=== PATIENT | female | born 1980 | race Caucasian/White ===

== ENCOUNTER → 2020-06-25 09:11 | Outpatient (BNVA) | payer OTHER, SELFPAY | PROVIDERS: PCP Family Medicine; Visit Provider Student in an Organized Health Care Education/Training Program | DX: Z76.89 Persons encountering health services in other specified circumstances (principal) ==

== ENCOUNTER → 2020-07-15 10:25 | Outpatient (BNVA) | payer OTHER, SELFPAY | PROVIDERS: PCP Family Medicine; Visit Provider Anesthesiology | DX: M47.816 Spondylosis without myelopathy or radiculopathy, lumbar region (principal); M46.1 Sacroiliitis, not elsewhere classified; M79.7 Fibromyalgia; E05.90 Thyrotoxicosis, unspecified without thyrotoxic crisis or storm; N83.209 Unspecified ovarian cyst, unspecified side | CPT/HCPCS: 99202 ==

== ENCOUNTER 2020-07-15 12:30 | Outpatient (REF) | payer OTHER, SELFPAY ==
[2020-07-15 14:56] LABS: Free T4 (Free Thyroxine) 1.04 ng/dL (0.71-1.85); Thyroid Stimulating Hormone 1.64 uIU/mL (0.32-4.0)
[2020-07-16 06:28] LABS: CA-125 6 U/mL (<35)
[2020-07-16 06:48] LABS: Triiodothyronine T3 Free 3.3 pg/mL (2.3-4.2)
== END 2020-07-15 12:31 | disposition home or self-care (01) ==
LOC: HO.10HDL 12:30
PROVIDERS: Visit Provider Anesthesiology
DX: N83.209 Unspecified ovarian cyst, unspecified side (principal); E05.90 Thyrotoxicosis, unspecified without thyrotoxic crisis or storm
CPT/HCPCS: 36415; 84439; 84443; 84481; 86304

== ENCOUNTER 2020-08-27 08:34 | Outpatient (REF) | payer OTHER, SELFPAY | END 2020-08-27 08:35 | disposition home or self-care (01) | LOC: HO.LAB 08:34 | PROVIDERS: Visit Provider Internal Medicine | DX: Z20.822 Contact with and (suspected) exposure to COVID-19 (principal) | CPT/HCPCS: 36415; C9803; U0003; U0005 ==

== ENCOUNTER 2020-08-27 08:46 | Outpatient (REF) | payer OTHER, SELFPAY ==
[2020-08-27 10:17] LABS: MANUAL DIFF FLAG NO
[2020-08-27 10:26] LABS: Basophils Percent Auto 0.5 % (0-2); Eosinophils Absolute Auto 0.1 X10*3/uL (0.0-0.4); Eosinophils Percent Auto 1.4 % (0-4); Hematocrit 39.1 % (37-47); Imm Gran Abs Auto 0.01 X10*3/uL (0.00-0.03); Imm Gran Pct Auto 0.2 % (0.0-0.4); Lymphocytes Absolute Auto 1.5 X10*3/uL (1.2-4.9); Lymphocytes Percent Auto 34.2 % (20-40); Mean Corpuscular HGB Conc 33.2 g/dl (31.0-35.0); Mean Corpuscular Hemoglobin 30.2 pg (27.0-33.0); Mean Corpuscular Volume 90.7 fL (80-98); Mean Platelet Volume 11.6 fL (9.4-12.3); Monocytes Absolute Auto 0.3 X10*3/uL (0.1-1.2); Neutrophils Absolute Auto 2.5 X10*3/uL (2.0-8.3); Neutrophils Percent Auto 56.7 % (45-73); Platelet Count 175 X10*3/uL (160-400); Red Blood Count 4.31 X10*6/uL (4.20-5.50); Red Cell Distribution Width 12.7 % (11.0-16.0); White Blood Count 4.4 X10*3/uL (4.8-10.8)
[2020-08-27 11:12] LABS: Alanine Aminotransferase 8 U/L (0-31); Albumin Level 4.4 g/dL (3.5-5.0); Alkaline Phosphatase 43 U/L (39-117); Anion Gap 12 (12-20); Aspartate Amino Transferase 12 U/L (5-31); Bilirubin Total 0.9 mg/dL (0.0-1.0); Blood Urea Nitrogen 22 mg/dL (9-16); Carbon Dioxide 28 mmol/L (22-29); Chloride 106 mmol/L (96-108); Estimated Glomerular Filt Rate > 60; Glucose Fasting 97 mg/dL (60-99); Potassium 3.6 mmol/L (3.3-5.1); Sodium 142 mmol/L (135-145); Total Protein 6.9 g/dL (6.5-8.0)
== END 2020-08-27 08:47 | disposition home or self-care (01) ==
LOC: HO.10HDL 08:46
PROVIDERS: Absent Provider Student in an Organized Health Care Education/Training Program; Visit Provider Family Medicine
DX: R63.4 Abnormal weight loss (principal)
CPT/HCPCS: 36415; 80053; 85025

== ENCOUNTER 2020-09-22 06:28 | Outpatient (REF) | payer OTHER, SELFPAY ==
--- NOTE | ~2020-09-22 | FL_ITS ---
EXAMINATION: XR FLUOROSCOPY WITH IMAGES CLINICAL INFORMATION: M46.1 - Sacroiliitis, not elsewhere classified COMPARISON: None. TECHNIQUE: Fluoroscopy performed by Gauri Garcia NP. Fluoroscopy time: 0.2 minutes DAP: 0.466 Gycm2 Images: 1 FINDINGS: There is a spinal needle overlying the lower right sacroiliac joint. FL/FL guidance in treatment room IMPRESSION: Fluoroscopy for pain management procedure.
== END 2020-09-22 06:29 | disposition home or self-care (01) ==
LOC: HO.RADIR 06:28
PROVIDERS: Visit Provider Anesthesiology
DX: M46.1 Sacroiliitis, not elsewhere classified (principal); M79.7 Fibromyalgia; Z79.899 Other long term (current) drug therapy
CPT/HCPCS: 27096; J3300; Q9967

== ENCOUNTER 2020-10-20 06:20 | Outpatient (REF) | payer OTHER, SELFPAY ==
--- NOTE | ~2020-10-20 | FL_ITS ---
EXAMINATION: XR FLUOROSCOPY WITH IMAGES CLINICAL INFORMATION: Spondylosis without myelopathy or radiculopathy. COMPARISON: None. TECHNIQUE: Fluoroscopy performed by Jose JASSO Fluoroscopy time: 0.6 minutes DAP: 2.46 Gycm2 Images: 6 FINDINGS: There are bilateral needles and contrast positioned lateral to the L3, L4 and L5 pedicles for ganglion blocks. No gross bony abnormality seen. FL/FL guidance in treatment room IMPRESSION: Fluoroscopy was provided to Gauri Garcia for spine procedure.
== END 2020-10-20 06:21 | disposition home or self-care (01) ==
LOC: HO.RADIR 06:20
PROVIDERS: Visit Provider Anesthesiology
DX: M47.816 Spondylosis without myelopathy or radiculopathy, lumbar region (principal); M46.1 Sacroiliitis, not elsewhere classified; M79.7 Fibromyalgia
CPT/HCPCS: 64493; 64494; Q9967

== ENCOUNTER → 2020-10-26 14:24 | Outpatient (BNVA) | payer OTHER, SELFPAY | PROVIDERS: PCP Family Medicine; Visit Provider Anesthesiology ==

== ENCOUNTER → 2020-12-09 09:11 | Outpatient (BNVA) | payer OTHER, SELFPAY | PROVIDERS: PCP Family Medicine; Visit Provider Anesthesiology | DX: M47.816 Spondylosis without myelopathy or radiculopathy, lumbar region (principal); M46.1 Sacroiliitis, not elsewhere classified; M53.3 Sacrococcygeal disorders, not elsewhere classified | CPT/HCPCS: 99212 ==

== ENCOUNTER 2020-12-23 09:50 | Outpatient (REF) | payer OTHER, SELFPAY ==
[2020-12-23 11:52] LABS: Hematocrit 41.7 % (37-47); Hemoglobin 13.8 g/dl (12.0-16.0); Mean Corpuscular HGB Conc 33.1 g/dl (31.0-35.0); Mean Corpuscular Hemoglobin 30.5 pg (27.0-33.0); Mean Corpuscular Volume 92.3 fL (80-98); Mean Platelet Volume 11.1 fL (9.4-12.3); Platelet Count 189 X10*3/uL (160-400); Red Blood Count 4.52 X10*6/uL (4.20-5.50); Red Cell Distribution Width 12.6 % (11.0-16.0); White Blood Count 6.2 X10*3/uL (4.8-10.8)
[2020-12-23 12:37] LABS: Thyroid Stimulating Hormone 0.82 uIU/mL (0.32-4.0)
[2020-12-24 05:33] LABS: CT PCR NOT DETECTED (Not Detect.); NG PCR NOT DETECTED (Not Detect.)
[2020-12-24 08:51] LABS: BV Int Neg Control Negative (Negative); BV Int Pos Control Positive (Positive)
[2020-12-26 06:47] LABS: HPV mRNA E6/E7 rflx Not Detected (Not Detected)
== END 2020-12-23 09:51 | disposition home or self-care (01) ==
LOC: HO.LAB 09:50
PROVIDERS: PCP Family Medicine; Visit Provider Advanced Practice Midwife
DX: Z01.411 Encounter for gynecological examination (general) (routine) with abnormal findings (principal); Z11.51 Encounter for screening for human papillomavirus (HPV); Z11.3 Encounter for screening for infections with a predominantly sexual mode of transmission; N92.1 Excessive and frequent menstruation with irregular cycle; N84.1 Polyp of cervix uteri; Z20.2 Contact with and (suspected) exposure to infections with a predominantly sexual mode of transmission
CPT/HCPCS: 36415; 84443; 85027; 87480; 87491; 87510; 87591; 87624; 87660; 88142

== ENCOUNTER 2021-01-13 11:15 | Outpatient (REF) | payer OTHER, SELFPAY ==
--- NOTE | ~2021-01-13 | US_ITS ---
EXAMINATION: PELVIC ULTRASOUND CLINICAL INFORMATION: Excessive and frequent menstruation COMPARISON: Previous CT of the abdomen and pelvis June 2014 TECHNIQUE: Transabdominal and transvaginal pelvic ultrasound was performed. Transvaginal exam was performed for better visualization of the uterus and ovaries. FINDINGS: The uterus is anteverted and measures 9 x 4.7 x 5 cm in dimension. No focal uterine lesion is seen. Endometrial thickness is normal measuring 0.5 cm. The ovaries are normal-appearing. The right ovary measures 4.3 x 2.3 x 2.2 cm and the left ovary measures 3.8 x 1.3 x 2.9 cm. There is no fluid in the pelvis. There are prominent pelvic vessels questionable for pelvic congestion, right greater than left. US/US pelvic and transvaginal IMPRESSION: Prominent pelvic vessels questionable for pelvic congestion, particularly on the right. Otherwise unremarkable exam.
== END 2021-01-13 11:16 | disposition home or self-care (01) ==
LOC: HO.US 11:15
PROVIDERS: Visit Provider Advanced Practice Midwife
DX: N92.0 Excessive and frequent menstruation with regular cycle (principal)
CPT/HCPCS: 76830; 76856

== ENCOUNTER 2021-01-28 09:48 | Outpatient (REF) | payer OTHER, SELFPAY | END 2021-01-28 09:49 | disposition home or self-care (01) | LOC: HO.LAB 09:48 | PROVIDERS: PCP Family Medicine; Visit Provider Advanced Practice Midwife | DX: N84.1 Polyp of cervix uteri (principal); N92.0 Excessive and frequent menstruation with regular cycle; Z79.899 Other long term (current) drug therapy; Z71.2 Person consulting for explanation of examination or test findings | CPT/HCPCS: 58100; 58558; 88305 ==

== ENCOUNTER → 2021-02-01 08:53 | Outpatient (BNVA) | payer OTHER, SELFPAY | PROVIDERS: PCP Family Medicine; Visit Provider Advanced Practice Midwife | DX: Z30.42 Encounter for surveillance of injectable contraceptive (principal) | CPT/HCPCS: 96372; 99211 ==

== ENCOUNTER → 2021-02-11 10:50 | Outpatient (BNVA) | payer OTHER, SELFPAY | PROVIDERS: PCP Family Medicine; Visit Provider Advanced Practice Midwife ==

== ENCOUNTER 2021-02-23 09:12 | Outpatient (REF) | payer OTHER, SELFPAY ==
--- NOTE | ~2021-02-23 | MM_ITS ---
EXAMINATION: MM SCREENING DIGITAL BREAST TOMOSYNTHESIS, BILATERAL CLINICAL INFORMATION: Screening. Asymptomatic. The lifetime risk of breast cancer based on the Tyrer-Cuzick Model is 7.6%. COMPARISON: Mammography: None TECHNIQUE: Digital breast tomosynthesis is performed in both the craniocaudal and mediolateral oblique views along with computer-aided detection (CAD). Synthesized 2D images are generated from the tomosynthesis. FINDINGS: The breasts are extremely dense, which lowers the sensitivity of mammography (ACR BI-RADS breast composition Category d). There are no significant masses, abnormal calcifications, or other abnormalities. MM/MM tomosynthesis screening BI IMPRESSION: No specific mammographic evidence to suggest malignancy. ASSESSMENT: BI-RADS 1: Negative RECOMMENDATION: Routine annual mammography screening. This patient's information was entered into a reminder system with a target due date for their next mammogram.
== END 2021-02-23 09:13 | disposition home or self-care (01) ==
LOC: HO.MAMMO 09:12
PROVIDERS: Visit Provider Advanced Practice Midwife
DX: Z12.31 Encounter for screening mammogram for malignant neoplasm of breast (principal)
CPT/HCPCS: 77063; 77067

== ENCOUNTER → 2021-03-01 11:03 | Outpatient (BNVA) | payer OTHER, SELFPAY | PROVIDERS: PCP Family Medicine; Visit Provider Advanced Practice Midwife ==

== ENCOUNTER 2021-03-09 06:33 | Outpatient (REF) | payer OTHER, SELFPAY ==
--- NOTE | ~2021-03-09 | FL_ITS ---
EXAMINATION: XR FLUOROSCOPY WITH IMAGES CLINICAL INFORMATION: Sacrococcygeal disorder. COMPARISON: None. TECHNIQUE: Fluoroscopy performed by Gauri Garcia NP Fluoroscopy time: 1.2 minutes DAP: 4.45 Gycm2 Images: 2 FINDINGS: There are bilateral needles positioned adjacent to L4, L5 and S1 pedicles. The visualized vertebral heights and alignment and disc heights are normal. FL/FL guidance in treatment room IMPRESSION: Fluoroscopy was provided to referring physician during pain management.
== END 2021-03-09 06:34 | disposition home or self-care (01) ==
LOC: HO.RADIR 06:33
PROVIDERS: Visit Provider Anesthesiology
DX: M47.816 Spondylosis without myelopathy or radiculopathy, lumbar region (principal); M46.1 Sacroiliitis, not elsewhere classified; M53.3 Sacrococcygeal disorders, not elsewhere classified
CPT/HCPCS: 64493; 64494; 64495; J3300

== ENCOUNTER → 2021-03-23 11:21 | Outpatient (BNVA) | payer OTHER, SELFPAY | PROVIDERS: PCP Family Medicine; Visit Provider Nurse Practitioner Family | DX: M79.7 Fibromyalgia (principal) | CPT/HCPCS: 99212 ==

== ENCOUNTER → 2021-04-14 09:20 | Outpatient (BNVA) | payer OTHER, SELFPAY | PROVIDERS: PCP Family Medicine; Visit Provider Nurse Practitioner Family | DX: M47.816 Spondylosis without myelopathy or radiculopathy, lumbar region (principal); M46.1 Sacroiliitis, not elsewhere classified; M53.3 Sacrococcygeal disorders, not elsewhere classified | CPT/HCPCS: 99212 ==

== ENCOUNTER → 2021-04-26 08:47 | Outpatient (BNVA) | payer OTHER, SELFPAY | PROVIDERS: PCP Family Medicine; Visit Provider Advanced Practice Midwife | DX: Z30.42 Encounter for surveillance of injectable contraceptive (principal) | CPT/HCPCS: 96372; 99211 ==

== ENCOUNTER → 2021-07-14 08:40 | Outpatient (BNVA) | payer OTHER, SELFPAY | PROVIDERS: PCP Family Medicine; Visit Provider Advanced Practice Midwife | DX: Z30.42 Encounter for surveillance of injectable contraceptive (principal) | CPT/HCPCS: 96372; 99211 ==

== ENCOUNTER → 2021-07-26 10:34 | Outpatient (BNVA) | payer OTHER, SELFPAY | PROVIDERS: Visit Provider Obstetrics & Gynecology ==

== ENCOUNTER 2021-08-30 09:31 | Outpatient (REF) | payer OTHER, SELFPAY ==
[2021-08-30 10:11] LABS: MANUAL DIFF FLAG NO
[2021-08-30 10:24] LABS: Basophils Percent Auto 0.4 % (0-2); Eosinophils Absolute Auto 0.1 X10*3/uL (0.0-0.4); Eosinophils Percent Auto 1.1 % (0-4); Hemoglobin 13.9 g/dl (12.0-16.0); Imm Gran Abs Auto 0.01 X10*3/uL (0.00-0.03); Imm Gran Pct Auto 0.2 % (0.0-0.4); Lymphocytes Absolute Auto 1.4 X10*3/uL (1.2-4.9); Lymphocytes Percent Auto 26.8 % (20-40); Mean Corpuscular HGB Conc 33.1 g/dl (31.0-35.0); Mean Corpuscular Hemoglobin 30.2 pg (27.0-33.0); Mean Corpuscular Volume 91.1 fL (80.0-98.0); Mean Platelet Volume 10.4 fL (9.4-12.3); Monocytes Absolute Auto 0.4 X10*3/uL (0.1-1.2); Monocytes Percent Auto 7.3 % (2-11); Neutrophils Absolute Auto 3.4 x10*3/uL (2.0-8.3); Neutrophils Percent Auto 64.2 % (45-73); Platelet Count 216 X10*3/uL (160-400); Red Blood Count 4.61 X10*6/uL (4.20-5.50); Red Cell Distribution Width 12.2 % (11.0-16.0); White Blood Count 5.3 X10*3/uL (4.8-10.8)
[2021-08-30 11:03] LABS: Erythrocyte Sedimentation Rate 2 MM/HR (0-20)
[2021-08-31 23:12] LABS: Follicle Stimulating Hormone 10.2 mIU/mL; Lutenizing Hormone 3.3 mIU/mL
== END 2021-08-30 09:32 | disposition home or self-care (01) ==
LOC: HO.LAB 09:31
PROVIDERS: PCP Family Medicine; Visit Provider Family Medicine
DX: R53.83 Other fatigue (principal); M79.10 Myalgia, unspecified site; R61 Generalized hyperhidrosis; M47.816 Spondylosis without myelopathy or radiculopathy, lumbar region; M46.1 Sacroiliitis, not elsewhere classified; M53.3 Sacrococcygeal disorders, not elsewhere classified
CPT/HCPCS: 36415; 83001; 83002; 85025; 85652; 99212

== ENCOUNTER → 2021-09-29 08:55 | Outpatient (BNVA) | payer OTHER, SELFPAY | PROVIDERS: PCP Family Medicine; Visit Provider Advanced Practice Midwife | DX: Z30.42 Encounter for surveillance of injectable contraceptive (principal) | CPT/HCPCS: 96372; 99211 ==

== ENCOUNTER → 2021-10-19 11:25 | Outpatient (BNVA) | payer OTHER, SELFPAY | PROVIDERS: PCP Family Medicine; Visit Provider Nurse Practitioner Family | DX: M79.7 Fibromyalgia (principal); R21 Rash and other nonspecific skin eruption | CPT/HCPCS: 99212 ==

== ENCOUNTER 2021-11-30 08:39 | Day surgery (SDC) | payer OTHER, SELFPAY ==
--- NOTE | ~2021-11-30 | FL_ITS ---
EXAMINATION: XR FLUOROSCOPY WITH IMAGES CLINICAL INFORMATION: RFA lumbar COMPARISON: March 09, 2021 TECHNIQUE: Fluoroscopy performed by Dr. Johnie Torres. Fluoroscopy time: 1.2 minutes DAP: 2.49 mGycm2 Images: 2 FINDINGS: [place] are seen in place bilaterally adjacent to the L4, L5, and S1 pedicles. No significant bony abnormalities appreciated. FL/FL guidance in OR IMPRESSION: Fluoroscopy for pain management procedure.
[2021-11-30 08:31] VITALS: BMI 21.4
[2021-11-30 08:55] VITALS: BP 103/69; PULSE 79; RESP 18; TEMP 36.6; O2SAT 99
--- NOTE | 2021-11-30 10:06 | MHC.SHP ---
Pre-Procedural Eval Section A Date of Service: 11/30/21 The patient is an INPATIENT: No Changes since office visit: Yes Patient answered all questions The History & Physical has been completed within 30 days and I have reviewed it.: No Section B Chief Complaint: Spondylosis without myelopathy or radiculopathy, l Details of Present Illness: as above Relevant Family History (Specify if Yes): No Relevant Social History: None Present Medications: see Short Stay Collaborative assessment Medical History: No relevant PMH History of Previous Operations: No relevant previous surgery Allergies: Allergies Allergy/AdvReac Type Severity Reaction Status Date / Time No Known Allergies Allergy Verified 10/19/21 11:45 [No Known Allergies*] Review of Systems Sugical H&P ROS: Negative: Constitution, Cardiovascular, Respiratory, Neurological, Psychiatric, Hem-Onc, Allergic/Immunologic, Gastrointestinal, Genitourinary, Musculoskeletal, Integumentary, Endocrine and Eyes/Ears/Nose/Throat Exam Surgical H&P Exam: Normal: HEENT, Normal: Heart, Normal: Lungs, Normal: Extremities, Normal: Abdomen, Normal: Skin and Normal: Neurological Plan Diagnosis/Plan: Unchanged I have reviewed the history and physical and performed a pertinent physical examination on my patient. No changes have occurred unless specified.
--- NOTE | 2021-11-30 10:07 | P.BOP_ITS ---
Brief Operative Note Date of Service: 11/30/21 Pre-op diagnosis: spondylosis lumbar spine Post-op diagnosis: same Procedure: RFA L3-L4- DRL5 B/l MB Implants: none Surgeon: Johnie Torres MD Anesthesia: local Was an Rivet Tapping Machine Operator used for this Procedure?: No Estimated blood loss (mL): 2 Pathology: none sent Condition: stable Disposition: PACU
--- NOTE | 2021-11-30 10:08 | W.PM.OPN ---
Operative Note Operative Note Date of Service: 11/30/21 Narrative: Informed consent was explained to the patient. All questions were explained and answered. The patient was taken inside the operating room where she was positioned prone on the operating table. [employer] monitors were applied. Patient was not sedated, she was able to answer the questions and respond to commands. Time-out was performed delineating correct site, side, the nature of the procedure, patient's allergy, preoperative antibiotic if needed. All operating room staff was participating in OR time-out procedure. The lower back was prepped with ChloraPrep and draped with sterile towels. Sterilely draped C-arm was brought over the operating field and sq picture of L4-and L5 vertebra and S1 AREA were delineated on the screen. Point of interest were delineated as connection of superior articular process of L4 and L5 vertebra bilaterally with corresponding transverse processes as well as connection of the sacral alae bilaterally with superior articular process of S1 1st on the right and then on the left side. . The projection of the point of interest to the skin were injected with the small amount of local anesthetic lidocaine 2% 1-1.5 cc. After that 18 gauge 100 mm RFA canulas? were driven to the point of interest in oblique fashion. After needles gently contacted the bone the sensory test was performed patient reported pressure tingling and burning sensation on sensory test.? After that motor tests were performed and no motor response was detected in the patients feet lower legs or thighs. After that? at the point of interests the cannulas? were injected with small amount of bupivacaine 0.5% mixed with lidocaine 1%-1cc? and also mixed with very small trace amount of Kenalog. 90 seconds after the injection the energy application was performed at 89 degrees Centigrade for 90 second. After first energy application the canullas were rotated 180 degress and energy application was repeated at the same setting. Upon completion of the injections? cannulas were removed and sterile dressings were applied, The? patient was taken outside of the operating room to recovery room where she recovered uneventfully.
[2021-11-30 11:15] VITALS: BP 117/71; PULSE 69; RESP 18; TEMP 36.8; O2SAT 100
== END 2021-11-30 11:30 | disposition home or self-care (01) ==
PROVIDERS: PCP Family Medicine; Visit Provider Anesthesiology
PROC: (CPT 64635; principal; 2021-11-30 09:30)
DX: M47.816 Spondylosis without myelopathy or radiculopathy, lumbar region (principal); M46.1 Sacroiliitis, not elsewhere classified; M53.3 Sacrococcygeal disorders, not elsewhere classified; M79.7 Fibromyalgia; F12.90 Cannabis use, unspecified, uncomplicated
CPT/HCPCS: 64635; 64636 ×2; J3300

== ENCOUNTER → 2021-12-22 10:47 | Outpatient (BNVA) | payer OTHER, SELFPAY | PROVIDERS: PCP Family Medicine; Visit Provider Advanced Practice Midwife | DX: Z30.42 Encounter for surveillance of injectable contraceptive (principal) | CPT/HCPCS: 96372; 99211 ==

== ENCOUNTER → 2022-01-03 10:42 | Outpatient (BNVA) | payer OTHER, SELFPAY | PROVIDERS: PCP Family Medicine; Visit Provider Anesthesiology | DX: M47.816 Spondylosis without myelopathy or radiculopathy, lumbar region (principal); M46.1 Sacroiliitis, not elsewhere classified; M53.3 Sacrococcygeal disorders, not elsewhere classified | CPT/HCPCS: 99212 ==

== ENCOUNTER → 2022-03-11 10:43 | Outpatient (BNVA) | payer OTHER, SELFPAY | PROVIDERS: Visit Provider Advanced Practice Midwife | DX: Z30.42 Encounter for surveillance of injectable contraceptive (principal) | CPT/HCPCS: 96372; 99211 ==

== ENCOUNTER → 2022-05-27 10:41 | Outpatient (BNVA) | payer OTHER, SELFPAY | PROVIDERS: Visit Provider Advanced Practice Midwife | DX: Z30.42 Encounter for surveillance of injectable contraceptive (principal) | CPT/HCPCS: 96372; 99211 ==

== ENCOUNTER → 2022-06-21 11:26 | Outpatient (BNVA) | payer OTHER, SELFPAY | PROVIDERS: PCP Family Medicine; Visit Provider Nurse Practitioner Family | DX: M79.7 Fibromyalgia (principal); R21 Rash and other nonspecific skin eruption | CPT/HCPCS: 99212 ==

== ENCOUNTER 2022-08-08 11:35 | Outpatient (REF) | payer OTHER, SELFPAY ==
[2022-08-08 13:36] LABS: MANUAL DIFF FLAG NO
[2022-08-08 13:41] LABS: Basophils Percent Auto 0.3 % (0-2); Eosinophils Absolute Auto 0.1 X10*3/uL (0.0-0.4); Eosinophils Percent Auto 1.6 % (0-4); Hematocrit 41.9 % (37.0-47.0); Hemoglobin 14.5 g/dl (12.0-16.0); Imm Gran Abs Auto 0.02 X10*3/uL (0.00-0.03); Imm Gran Pct Auto 0.3 % (0.0-0.4); Lymphocytes Absolute Auto 1.9 X10*3/uL (1.2-4.9); Lymphocytes Percent Auto 28.8 % (20-40); Mean Corpuscular HGB Conc 34.6 g/dl (31.0-35.0); Mean Corpuscular Hemoglobin 31.5 pg (27.0-33.0); Mean Corpuscular Volume 90.9 fL (80.0-98.0); Mean Platelet Volume 10.5 fL (9.4-12.3); Monocytes Absolute Auto 0.4 X10*3/uL (0.1-1.2); Monocytes Percent Auto 5.8 % (2-11); Neutrophils Absolute Auto 4.2 x10*3/uL (2.0-8.3); Neutrophils Percent Auto 63.2 % (45-73); Platelet Count 263 X10*3/uL (160-400); Red Blood Count 4.61 X10*6/uL (4.20-5.50); Red Cell Distribution Width 12.8 % (11.0-16.0); White Blood Count 6.7 X10*3/uL (4.8-10.8)
[2022-08-08 14:04] LABS: Anion Gap 10 (12-20); Blood Urea Nitrogen 22 mg/dL (9-16); C Reactive Protein 0.11 mg/dL (< or = 0.50); Calcium 9.4 mg/dL (8.4-10.2); Carbon Dioxide 26 mmol/L (22-29); Chloride 107 mmol/L (96-108); Estimated Glomerular Filt Rate > 60; Glucose Random 95 mg/dL (60-115); Potassium 4.3 mmol/L (3.3-5.1); Sodium 139 mmol/L (135-145)
[2022-08-08 14:16] LABS: TSH reflex Free T4 1.34 uIU/mL (0.32-4.0)
[2022-08-08 14:21] LABS: Erythrocyte Sedimentation Rate 7 MM/HR (0-20)
[2022-08-08 16:41] LABS: Alanine Aminotransferase 14 U/L (0-31); Albumin Level 4.3 g/dL (3.5-5.0); Alkaline Phosphatase 54 U/L (39-117); Aspartate Amino Transferase 14 U/L (5-31); Bilirubin Total 0.7 mg/dL (0.0-1.0); Total Protein 6.8 g/dL (6.5-8.0)
[2022-08-08 16:54] LABS: Free T4 (Free Thyroxine) 0.98 ng/dL (0.71-1.85)
== END 2022-08-08 11:36 | disposition home or self-care (01) ==
LOC: HO.10HDL 11:35
PROVIDERS: Absent Provider Family Medicine; Visit Provider Nurse Practitioner Family
DX: R25.1 Tremor, unspecified (principal); M79.7 Fibromyalgia
CPT/HCPCS: 36415; 80048; 80053; 83735; 84439; 84443; 85025; 85652; 86140

== ENCOUNTER 2022-08-18 12:19 | Outpatient (REF) | payer OTHER, SELFPAY ==
--- NOTE | ~2022-08-18 | MM_ITS ---
EXAMINATION: MM SCREENING DIGITAL BREAST TOMOSYNTHESIS, BILATERAL CLINICAL INFORMATION: Screening. Asymptomatic. The lifetime risk of breast cancer based on the Tyrer-Cuzick Model is 7%. COMPARISON: Mammography: 02/23/2021 (baseline). TECHNIQUE: Digital breast tomosynthesis is performed in both the craniocaudal and mediolateral oblique views along with computer-aided detection (CAD). Synthesized 2D images are generated from the tomosynthesis. Additional right CC view is provided. FINDINGS: The breasts are heterogeneously dense, which may obscure small masses (ACR BI-RADS breast composition Category c). Left breast shows no significant changes from baseline exam. Neither breast shows interval architectural abnormality or abnormal calcifications. The axilla and skin contours are unremarkable. Right CC view shows 5 mm asymmetric nodular density just lateral to midline, 5 cm from nipple not seen with certainty on prior exam, possibly previously obscured by overlapping fibroglandular tissue. This could represent a small cyst or intramammary node. Patient will be recalled for additional imaging. MM/MM tomosynthesis screening BI IMPRESSION: Right: -5 mm nodular asymmetric density just lateral to midline 5 cm from nipple. Left: -No mammographic evidence of malignancy. ASSESSMENT: BI-RADS 0: Incomplete - Need Additional Imaging Evaluation RECOMMENDATION: 1. Additional views of the right breast (spot CC, rolled CC x2) 2. Targeted ultrasound if warranted after review of the additional views. 3. Radiology department staff will contact the patient for additional imaging. This patient's information was entered into a reminder system with a target due date for their next mammogram.
== END 2022-08-18 12:20 | disposition home or self-care (01) ==
LOC: HO.MAMMO 12:19
PROVIDERS: PCP Family Medicine; Visit Provider Advanced Practice Midwife
DX: Z12.31 Encounter for screening mammogram for malignant neoplasm of breast (principal)
CPT/HCPCS: 77063; 77067

== ENCOUNTER → 2022-08-19 10:41 | Outpatient (BNVA) | payer OTHER, SELFPAY | PROVIDERS: PCP Family Medicine; Visit Provider Advanced Practice Midwife | DX: Z30.42 Encounter for surveillance of injectable contraceptive (principal) | CPT/HCPCS: 96372; 99211 ==

== ENCOUNTER 2022-09-13 14:17 | Outpatient (REF) | payer OTHER, SELFPAY ==
--- NOTE | ~2022-09-13 | MM_ITS ---
EXAMINATION: MM DIAGNOSTIC DIGITAL BREAST TOMOSYNTHESIS, RIGHT US DIAGNOSTIC ULTRASOUND BREAST, RIGHT CLINICAL INFORMATION: Recall from screening for 0.5 cm asymmetric nodular density mid right breast on CC view not seen with certainty on prior baseline exam, possibly obscured by overlapping fibroglandular tissue previously. TC score 7%. COMPARISON: Mammography: 08/18/2022, 02/23/2021 (baseline) TECHNIQUE: Digital breast tomosynthesis is performed. 2D images are generated from the tomosynthesis. The following views are obtained: Spot CC, rolled CC x2. Ultrasound right breast is targeted to the upper breast using grayscale imaging and color Doppler without and with harmonics. FINDINGS: The breasts are heterogeneously dense, which may obscure small masses (ACR BI-RADS breast composition Category c). The additional views confirm a smooth oval nodule central breast. Margins are smooth, partially obscured. No architectural abnormality. There is an incidental similar sized smooth nodule mid outer right breast which is stable from baseline exam. Ultrasound right breast demonstrates oval nodule mid 11:00 position, long axis parallel with the skin and overall size just under 6 mm. There are some fine internal septations. There is subtle increased through-transmission of sound. There is no associated peripheral or internal color flow. Results are discussed with the patient at time of visit. The nodule most likely represents a benign mildly complicated cyst. Finding will be reassessed again in 6 months with targeted ultrasound. MM/MM tomosynthesis added views R IMPRESSION: Probable benign mildly complicated cyst mid 11:00 right breast, approximately 6 mm. ASSESSMENT: BI-RADS 3: Probably Benign RECOMMENDATION: Targeted right breast ultrasound in 6 months. This patient's information was entered into a reminder system with a target due date for their next breast imaging.
== END 2022-09-13 14:18 | disposition home or self-care (01) ==
LOC: HO.MAMMO 14:17
PROVIDERS: PCP Family Medicine; Visit Provider Advanced Practice Midwife
DX: N64.89 Other specified disorders of breast (principal)
CPT/HCPCS: 76642; 77061; 77065

== ENCOUNTER → 2022-10-07 10:35 | Outpatient (BNVA) | payer OTHER, SELFPAY | PROVIDERS: PCP Family Medicine; Visit Provider Psychiatry & Neurology Neurology | DX: G25.2 Other specified forms of tremor (principal); G47.00 Insomnia, unspecified; G47.62 Sleep related leg cramps; G47.10 Hypersomnia, unspecified; F41.9 Anxiety disorder, unspecified | CPT/HCPCS: 99202 ==

== ENCOUNTER → 2022-11-24 15:42 | Outpatient (REF) | payer OTHER, SELFPAY | LOC: HO.SL 15:42 | PROVIDERS: PCP Family Medicine; Visit Provider Psychiatry & Neurology Neurology | DX: G47.00 Insomnia, unspecified (principal); G47.10 Hypersomnia, unspecified; G47.62 Sleep related leg cramps; R06.83 Snoring | CPT/HCPCS: 95806 ==

== ENCOUNTER → 2022-12-16 14:16 | Outpatient (BNVA) | payer OTHER, SELFPAY | PROVIDERS: PCP Family Medicine; Visit Provider Psychiatry & Neurology Neurology | DX: G25.2 Other specified forms of tremor (principal); G47.00 Insomnia, unspecified; G47.62 Sleep related leg cramps; G47.10 Hypersomnia, unspecified; F41.9 Anxiety disorder, unspecified | CPT/HCPCS: 99212 ==

== ENCOUNTER → 2022-12-30 20:56 | Outpatient (REF) | payer OTHER, SELFPAY | LOC: HO.SL 20:56 | PROVIDERS: PCP Family Medicine; Visit Provider Nurse Practitioner Family | DX: G47.62 Sleep related leg cramps (principal); G47.10 Hypersomnia, unspecified; G47.00 Insomnia, unspecified | CPT/HCPCS: 95810 ==

== ENCOUNTER → 2022-12-30 21:17 | Outpatient (BNV) | payer OTHER, SELFPAY | PROVIDERS: PCP Family Medicine; Visit Provider Psychiatry & Neurology Neurology | DX: R06.83 Snoring (principal) | CPT/HCPCS: 95810 ==

== ENCOUNTER 2025-01-23 10:26 | Outpatient (AMB) | payer OTHER, SELFPAY ==
--- NOTE | 2025-01-23 10:18 | MHC.PC.OV ---
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 Required: No Accompanied by: Self / Same As Patient Allergies No Known Allergies (No Known Allergies*) Allergy (Verified 01/23/25 10:18) Medication List - Last Reconciled 01/23/25 by Shaina Looney MD atomoxetine 60 mg PO QAM pregabalin 150 mg (2 x 75 mg) PO DAILY quetiapine ER 50 mg PO BEDTIME Tobacco use date assessed: 01/23/25 Dental Screening Dental Screen Date: 01/23/25 Did you have a dental visit in the last 12 months?: No Did you have a dental problem in the last 6 months where you did not have access to dental care?: No HPI HPI Comments History of Present Illness Details The patient is a 45 year old female with a past medical history of anxieyt, insomnia, IBS, presenting for follow up IBA-follows with [facility]: [facility]: [facility]. on atomoxetine, seroquel. Unsure of exact doses Frequent low back pain, joint pain. Increasingly bad over the past few years ROS CONSTITUTIONAL: Denies weight loss, fever and chills. HEENT: Denies changes in vision and hearing. RESPIRATORY: Denies SOB and cough. CV: Denies palpitations and CP GI: Denies abdominal pain, nausea, vomiting and diarrhea. : Denies dysuria and urinary frequency. MSK: Denies new myalgia and joint pain. SKIN: Denies rash and pruritus. NEUROLOGICAL: Denies headache PSYCHIATRIC: Denies recent changes in mood. PHYSICAL EXAM: GENERAL: Alert and oriented x 3. NAD EYES: EOMI. Anicteric. HENT: Moist mucous membranes. No scleral icterus. No cervical lymphadenopathy. LUNGS: Clear to auscultation bilaterally. CARDIOVASCULAR: Regular rate and rhythm. No murmur. No JVD. ABDOMEN: Soft, non-tender +bs EXTREMITIES: No edema. Non-tender. SKIN: No rashes or lesions. Warm. NEUROLOGIC: No focal neurological deficits. CN II-XII grossly intact PSYCHIATRIC: Cooperative. Appropriate mood and affect [facility] Medical History Anxiety Coarse tremors Hypersomnia Nocturnal leg cramps Insomnia Sacroiliac joint dysfunction of right side Weight loss Ovarian cyst Sacroiliitis Fibromyalgia Surgical History H/O knee surgery Hx of tubal ligation Family History Paternal Aunt History of breast cancer Mother No problems noted. Father No problems noted. Social History Housing: House Alcohol intake: never Patient Tobacco Use Status: Never used Tobacco e-Cigarette/Vaping Use: Never Used Substance Use Type: Marijuana service: No Current occupational status: unemployed Sexual orientation: Straight/Heterosexual Gender identity: Female Cognitive needs: No Hearing needs: No Vision needs: Yes (rx glasses) Questionnaire PHQ-9 Over the last 2 weeks, how often have you been bothered by any of the following problems? 1. Little interest or pleasure in doing things: not at all 2. Feeling down, depressed, or hopeless: nearly every day (anxiety) 3. Trouble falling or staying asleep, or sleeping too much: nearly every day 4. Feeling tired or having little energy: nearly every day 5. Poor appetite or overeating: nearly every day 6. Feeling bad about yourself - or that you are a failure or have let yourself or your family down: not at all 7. Trouble concentrating on things, such as reading the newspaper or watching television: not at all 8. Moving or speaking so slowly that other people could have noticed. Or the opposite - being so fidgety or restless that you have been moving around a lot more than usual: not at all 9. Thoughts that you would be better off or of hurting yourself in some way: not at all Total score: 12 Depression Screening Interpretation: Positive Depression Screening Follow-up: Existing condition Depression Screening Done: Yes 44407 - PHQ-9 Billing: Yes Source: Developed by Drs. Prateek Rea, Ana B.Julio Delacruz and colleagues, with an educational dipti from [employer]. Thrive Questionnaire Date Thrive assessed: 01/23/25 I am a: Patient Within the past 12 months, did the food you bought not last and you didn't have the money to get more?: Never true Within the past 12 months, did you worry whether your food would run out before you got money to buy more?: Never true Do you have trouble paying for medicines?: No Do you have trouble getting transportation to medical appointments?: No Do you have trouble paying your heating and electricity bill?: No Do you have trouble taking care of your child, family member or friend?: No Do you have trouble with day-to-day activities such as bathing, preparing meals, shopping, managing finances, etc.?: No Are you currently unemployed and looking for a job?: No Are you interested in more education?: No THRIVE Score: 0 AUDIT C Alcohol Use Questionnaire (AUDIT-C) 1. How often do you have a drink containing alcohol?: Never 3. How often do you have six or more drinks on one occasion?: Never Total Score: 0 EMILIANO-7 AMB Questionnaire EMILIANO-7 Date EMILIANO - 7 assessed: 01/23/25 Feeling nervous, anxious, or on edge: 3 = Nearly every day Not being able to stop or control worryin = Not at all Worrying too much about different things: 0 = Not at all Trouble relaxin = Not at all Being so restless that it is hard to sit still: 0 = Not at all Becoming easily annoyed or irritable: 0 = Not at all Feeling afraid as if something awful might happen: 0 = Not at all Total EMILIANO-7 score (0-4 normal; 5-9 mild; 10-14 moderate; 15-21 severe): 3 Source: Developed by Drs. Prateek Rea, Julio Melgar and colleagues, with an educational dipti from [employer]. Physical exam (Primary Care) Vital Signs: Last Vital Signs Temp 97.8 F 01/23/25 10:30 Pulse 88 01/23/25 10:30 BP 120/80 01/23/25 10:30 Pulse Ox 98 01/23/25 10:30 Oxygen Delivery Method Room Air 01/23/25 10:30 BMI result Body Mass Index 25.5 Tobacco/Smoking Status: Tobacco use Status Tobacco use date assessed 01/23/25 01/23/25 10:19 Patient Tobacco Use Status Never used Tobacco 01/23/25 10:19 e-Cigarette/Vaping Use Never Used 01/23/25 10:19 PHQ-9: PHQ-9 Score PHQ-9: Total score 12 01/27/25 13:57 Depression Screening Interpretation: Positive Depression Screening Follow-up: Existing condition Thrive Assessment: Date of Thrive Assessment Date Thrive assessed 01/23/25 01/23/25 10:19 Coding Level of Care Code New Pt Level 4 (91066) Complex EM visit Add On G2211 Diagnoses Anxiety F41.9 Irritable bowel syndrome, unspecified type K58.9 Irritable bowel syndrome type: unspecified Weight loss R63.4 Additional Codes PHQ-9 - 51270 - PHQ-9 Billing: Yes ([id number]) Assessment & Plan Assessment & Plan (1) Anxiety: Code(s): F41.9 - Anxiety disorder, unspecified Category: Medical (2) IBS (irritable bowel syndrome): Code(s): K58.9 - Irritable bowel syndrome, unspecified Category: Medical Qualifiers: Irritable bowel syndrome type: unspecified Qualified Code(s): K58.9 - Irritable bowel syndrome, unspecified (3) Weight loss: Code(s): R63.4 - Abnormal weight loss Category: Medical Plan 45 year old female to establish/follow up Polyarthraglia, increased low back pain -xray ordered. labs ordered.Referral orthopedics. Mammo ordered Orders: Orders Complete Blood Count Auto Diff 01/23/25 F41.9 - Anxiety disorder, unspecified, M54.9 - Dorsalgia, unspecified, R35.89 - Other polyuria, Z13.0 - Encounter for screening for diseases of the blood and blood-forming organs and certain disorders involving the immune mechanism, Z13.228 - Encounter for screening for other metabolic disorders Hemoglobin A1c 01/23/25 F41.9 - Anxiety disorder, unspecified, M54.9 - Dorsalgia, unspecified, R35.89 - Other polyuria, Z13.0 - Encounter for screening for diseases of the blood and blood-forming organs and certain disorders involving the immune mechanism, Z13.228 - Encounter for screening for other metabolic disorders Comprehensive Met. Panel 01/23/25 F41.9 - Anxiety disorder, unspecified, M54.9 - Dorsalgia, unspecified, R35.89 - Other polyuria, Z13.0 - Encounter for screening for diseases of the blood and blood-forming organs and certain disorders involving the immune mechanism, Z13.228 - Encounter for screening for other metabolic disorders Lipid Panel 01/23/25 F41.9 - Anxiety disorder, unspecified, M54.9 - Dorsalgia, unspecified, R35.89 - Other polyuria, Z13.0 - Encounter for screening for diseases of the blood and blood-forming organs and certain disorders involving the immune mechanism, Z13.228 - Encounter for screening for other metabolic disorders Lyme IgG/IgM w/reflex to WB 01/23/25 F41.9 - Anxiety disorder, unspecified, M54.9 - Dorsalgia, unspecified, R35.89 - Other polyuria, Z13.0 - Encounter for screening for diseases of the blood and blood-forming organs and certain disorders involving the immune mechanism, Z13.228 - Encounter for screening for other metabolic disorders XR lumbar spine 2-3V 01/23/25 F41.9 - Anxiety disorder, unspecified, M54.9 - Dorsalgia, unspecified, R35.89 - Other polyuria, Z13.0 - Encounter for screening for diseases of the blood and blood-forming organs and certain disorders involving the immune mechanism, Z13.228 - Encounter for screening for other metabolic disorders MM tomosynthesis screening BI 01/23/25 Z12.31 - Encounter for screening mammogram for malignant neoplasm of breast Referrals Orthopedics Referral F41.9 - Anxiety disorder, unspecified, M47.816 - Spondylosis without myelopathy or radiculopathy, lumbar region, M54.9 - Dorsalgia, unspecified, R35.89 - Other polyuria, Z13.0 - Encounter for screening for diseases of the blood and blood-forming organs and certain disorders involving the immune mechanism, Z13.228 - Encounter for screening for other metabolic disorders Gastroenterology Referral K58.9 - Irritable bowel syndrome, unspecified, Z12.11 - Encounter for screening for malignant neoplasm of colon
[2025-01-23 10:30] VITALS: BP 120/80; PULSE 88; TEMP 36.6; O2SAT 98; BMI 25.5
== END 2025-01-23 10:58 | disposition home or self-care (01) ==
LOC: HO.HMCHD 10:26
PROVIDERS: PCP Family Medicine; Visit Provider Internal Medicine
DX: F41.9 Anxiety disorder, unspecified (principal); K58.9 Irritable bowel syndrome, unspecified; R63.4 Abnormal weight loss

== ENCOUNTER → 2025-01-23 10:26 | Outpatient (BNVA) | payer OTHER, SELFPAY | PROVIDERS: PCP Family Medicine; Visit Provider Internal Medicine | DX: F41.9 Anxiety disorder, unspecified (principal); K58.9 Irritable bowel syndrome, unspecified; R63.4 Abnormal weight loss; M54.50 Low back pain, unspecified; M25.50 Pain in unspecified joint; Z13.31 Encounter for screening for depression; Z13.39 Encounter for screening examination for other mental health and behavioral disorders | CPT/HCPCS: 96127; 99202 ==

== ENCOUNTER 2025-02-03 12:06 | Outpatient (REF) | payer OTHER, SELFPAY ==
[2025-02-03 12:15] LABS: MANUAL DIFF FLAG NO
[2025-02-03 12:54] LABS: Hematocrit 42.9 % (37.0-47.0); Hemoglobin 14.1 g/dl (12.0-16.0); Imm Gran Abs Auto 0.02 X10*3/uL (0.00-0.03); Imm Gran Pct Auto 0.3 % (0.0-0.4); Lymphocytes Absolute Auto 1.6 X10*3/uL (1.2-4.9); Mean Corpuscular HGB Conc 32.9 g/dl (31.0-35.0); Mean Corpuscular Hemoglobin 29.7 pg (27.0-33.0); Mean Corpuscular Volume 90.3 fL (80.0-98.0); NRBC Abs Auto 0.000 X10*3/uL (0.0-0.012); NRBC Pct Auto 0.0 /100WBC (0.0-0.2); Platelet Count 226 X10*3/uL (160-400); Red Blood Count 4.75 X10*6/uL (4.20-5.50); White Blood Count 6.1 X10*3/uL (4.8-10.8)
[2025-02-03 13:07] LABS: Hemoglobin A1C 125.8471 umol/L; Total Hemoglobin (HGBA1C) 3732.3554 umol/L
--- OUTSIDE RECORDS SUMMARY | 2025-02-03 13:28 | XMS_ITS | Clinical Summary ---
Author Organization 175 [facility] Address 175 [place] [address] Phone Care Team Providers Care Manufacturing Baker Name Role Phone Shaina Looney MD Primary Care Provider [phone] Encounters Date Type Department Care Team Description 01/29/2025 Telephone Gastroenterology [facility] 175 [facility] [address] [address] Johnnie Dimas MD from Last 3 Months Social History Tobacco Use Types Packs/Day Years Used Date Smoking Tobacco: Never Assessed Comments Unknown Sex and Gender Information Value Date Recorded Sex Assigned at Not on file Legal Sex Female 11:05 AM EDT Gender Identity Not on file Sexual Orientation Not on file Plan of Treatment Upcoming Encounters Date Type Department Care Team ([facility] st Contact Info) Description 05/15/2025 10:50 AM EST Consult Gastroenterology [facility] 175 [facility] [address] [address] Yissel Rod PA [address] [phone] Health Maintenance Due Date Last Done Comments Breast Cancer Screening 1980 DTaP,Tdap,and Td Vaccines (1 - Tdap) 01/18/1999 Hepatitis B Vaccines (1 of 3 - 19+ 3-dose series) 01/18/1999 Cervical Cancer Screening: P ap Smear 01/18/2001 COVID-19 Vaccine ( - 2023-2 5 season) 2024 Depression Screening 06/12/2024 Colorectal Cancer Screening: Colonoscopy 01/29/2025 HIV Screening 01/29/2025 Hepatitis C Screening 01/29/2025 Social Influencers of Health Screening 01/29/2025 Influenza Vaccine (#1) 2025 HIB Vaccines Aged Out No longer eligi ble based on patient's age to complete this topic HPV Vaccines Aged Out No longer eligi ble based on patient's age to complete this topic Hepatitis A Vaccines Aged Out No long er eligible based on patient's age to complete this topic IPV Vaccines Aged Out No longer eligi ble based on patient's age to complete this topic MMR Vaccines Aged Out No longer eligi ble based on patient's age to complete this topic Meningococcal ACWY Vaccine Aged Out N o longer eligible based on patient's age to complete this topic Meningococcal B Vaccine Aged Out No l onger eligible based on patient's age to complete this topic Pneumococcal Vaccine: Pediat rics (0 to 5 Years) and At-Risk Patients (6 to 49 Years) Aged Out No longer eligible b ased on patient's age to complete this topic RSV Immunization Patients Un charlette 20 months Aged Out No longer eligible b ased on patient's age to complete this topic Varicella Vaccines Aged Out No longer eligible based on patient's age to complete this topic Insurance [email or web address] [email or web address] Care Teams Manufacturing Baker Relationship Specialty Start Date End Date Shaina Looney MD [address] [place] [phone] PCP - General Internal Medicine 01/29/25
[2025-02-03 13:47] LABS: Alanine Aminotransferase 15 U/L (0-31); Albumin Level 4.7 g/dL (3.5-5.0); Alkaline Phosphatase 57 U/L (39-117); Anion Gap 11 (12-20); Aspartate Amino Transferase 18 U/L (5-31); Blood Urea Nitrogen 17 mg/dL (9-16); Calcium 9.4 mg/dL (8.4-10.2); Carbon Dioxide 24 mmol/L (22-29); Chloride 108 mmol/L (96-108); Cholesterol 234 mg/dL (<200); Estimated Glomerular Filt Rate > 60; HDL Cholesterol 59 mg/dL (>40); Potassium 4.3 mmol/L (3.3-5.1); Sodium 139 mmol/L (135-145); Total Protein 7.3 g/dL (6.5-8.0); Triglycerides 61 mg/dL (<150)
[2025-02-04 12:29] LABS: Lyme Abs Screen <0.90 index
== END 2025-02-03 12:07 | disposition home or self-care (01) ==
LOC: HO.LAB 12:06
PROVIDERS: PCP Internal Medicine; Visit Provider Internal Medicine
DX: Z13.0 Encounter for screening for diseases of the blood and blood-forming organs and certain disorders involving the immune mechanism (principal); Z13.228 Encounter for screening for other metabolic disorders; F41.9 Anxiety disorder, unspecified; R35.89 Other polyuria; M54.9 Dorsalgia, unspecified
CPT/HCPCS: 36415; 80053; 80061; 83036; 85025; 86617; 86618

== ENCOUNTER 2025-02-05 13:52 | Outpatient (REF) | payer OTHER, SELFPAY ==
--- NOTE | ~2025-02-05 | XR_ITS ---
EXAMINATION: XR LUMBOSACRAL SPINE CLINICAL INFORMATION: Z13.0 - Encounter for screening for diseases of the blood and blood-form... COMPARISON: September 03, 2015 TECHNIQUE: AP and lateral views FINDINGS: Marginal osteophyte formation and endplate sclerosis at L5-S1. Facet joint hypertrophy at L5-S1. No acute cortical disruption or gross malalignment. No lytic or blastic lesions. 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 Slightly worse. Electronically signed by: Fox Méndez MD 02/05/2025 02:24 PM EDT
--- OUTSIDE RECORDS SUMMARY | 2025-02-05 14:44 | XMS_ITS | Clinical Summary ---
Author Organization 175 [facility] Address 175 [place] [address] Phone Care Team Providers Care Plumbing Engineering Draftsperson Name Role Phone Shaina Looney MD Primary Care Provider [phone] Encounters Date Type Department Care Team Description 01/29/2025 Telephone Gastroenterology [facility] [address] [address] Johnnie Dimas MD from Last 3 Months Social History Tobacco Use Types Packs/Day Years Used Date Smoking Tobacco: Never Assessed Comments Unknown Sex and Gender Information Value Date Recorded Sex Assigned at Not on file Legal Sex Female 11:05 AM EDT Gender Identity Not on file Sexual Orientation Not on file Plan of Treatment Upcoming Encounters Date Type Department Care Team ([facility] st Contact Info) Description 05/15/2025 10:50 AM EST Consult Gastroenterology [facility] [address] [address] Yissel Rod PA [address] [place] [phone] Health Maintenance Due Date Last Done Comments Breast Cancer Screening 1980 DTaP,Tdap,and Td Vaccines (1 - Tdap) 01/18/1999 Hepatitis B Vaccines (1 of 3 - 19+ 3-dose series) 01/18/1999 Cervical Cancer Screening: P ap Smear 01/18/2001 COVID-19 Vaccine (2023-2 5 season) 2024 Depression Screening 06/12/2024 Colorectal [...] to complete this topic Insurance [facility] [employer] Care Teams Plumbing Engineering Draftsperson Relationship Specialty Start Date End Date Shaina Looney MD [address] [place] [address] PCP - General Internal Medicine 01/29/25
== END 2025-02-05 13:53 | disposition home or self-care (01) ==
LOC: HO.XRAY 13:52
PROVIDERS: PCP Internal Medicine; Visit Provider Internal Medicine
DX: R35.89 Other polyuria (principal); M54.9 Dorsalgia, unspecified
CPT/HCPCS: 72100

== ENCOUNTER → 2025-02-05 13:58 | Outpatient (BNV) | payer OTHER, SELFPAY | PROVIDERS: PCP Internal Medicine; Visit Provider Radiology Diagnostic Radiology | DX: Z13.0 Encounter for screening for diseases of the blood and blood-forming organs and certain disorders involving the immune mechanism (principal) | CPT/HCPCS: 72100 ==

== ENCOUNTER 2025-03-17 14:52 | Outpatient (REF) | payer OTHER, SELFPAY ==
--- OUTSIDE RECORDS SUMMARY | 2025-03-17 17:13 | XMS_ITS | Clinical Summary ---
Author Organization 175 [facility] Address [address] [place] [address] Phone Care Team Providers Care Casting Operator Name Role Phone Shaina Looney MD Primary Care Provider [phone] Encounters Date Type Department Care Team Description 01/29/2025 Telephone Gastroenterology [facility] 175 [facility] [address] [phone] Johnnie Dimas MD from Last 3 Months Social History Tobacco Use Types Packs/Day Years Used Date Smoking Tobacco: Never Assessed Comments Unknown Sex and Gender Information Value Date Recorded Sex Assigned at Not on file Legal Sex Female 11:05 AM EDT Gender Identity Not on file Sexual Orientation Not on file Plan of Treatment Upcoming Encounters Date Type Department Care Team ([facility] st Contact Info) Description 05/15/2025 10:50 AM EST Consult Gastroenterology [facility] 175 [facility] [address] [address] Yissel Rod PA [address] [phone] Health Maintenance Due Date Last Done Comments Breast Cancer Screening 1980 Colorectal Cancer Screening: Colonoscopy 1980 DTaP,Tdap,and Td Vaccines (1 - Tdap) 01/18/1999 Hepatitis B Vaccines (1 of 3 - 19+ 3-dose series) 01/18/1999 Cervical Cancer Screening: P ap Smear 01/18/2001 HPV Vaccines (1 - 3-dose SCD M series) 01/18/2007 Depression Screening 06/12/2024 HIV Screening 01/29/2025 Hepatitis C Screening 01/29/2025 Social Influencers of Health Screening 01/29/2025 COVID-19 Vaccine ( - 2023-2 5 season) 2025 Influenza Vaccine (#1) 2025 RSV Immunization Adult Patie nts (1 - 1-dose 75+ series) 01/18/2055 HIB Vaccines Aged Out No longer eligi [...] patient's age to complete this topic Insurance [facility] [employer] Care Teams Casting Operator Relationship Specialty Start Date End Date Shania Looney MD [address] [place] [phone] PCP - General Internal Medicine 01/29/25
== END 2025-03-17 14:53 | disposition home or self-care (01) ==
LOC: HO.MAMMO 14:52
PROVIDERS: PCP Internal Medicine; Visit Provider Internal Medicine
DX: Z12.31 Encounter for screening mammogram for malignant neoplasm of breast (principal)
CPT/HCPCS: 77063; 77067

== ENCOUNTER → 2025-03-17 15:15 | Outpatient (BNV) | payer OTHER, SELFPAY | PROVIDERS: PCP Internal Medicine; Visit Provider Internal Medicine | DX: Z12.31 Encounter for screening mammogram for malignant neoplasm of breast (principal) | CPT/HCPCS: 77063; 77067 ==

== ENCOUNTER 2025-04-03 12:15 | Outpatient (REF) | payer OTHER, SELFPAY ==
--- NOTE | ~2025-04-03 | US_ITS ---
EXAMINATION: US DIAGNOSTIC ULTRASOUND BREAST, RIGHT CLINICAL INFORMATION: Follow-up to complete 2 years and diagnostic imaging right breast ultrasound solid mass versus complicated cyst at 11:00 3 cm from the nipple.. COMPARISON: Comparison is made with relevant prior imaging. TECHNIQUE: Ultrasound of the breast is performed with real-time gooden scale imaging and color Doppler. FINDINGS: Targeted color Doppler ultrasound scanning in the right breast at 11:00 3 cm from nipple discharge demonstrates a hypoechoic oval circumscribed solid mass versus complicated cyst measuring 4 x 5 x 2 mm not significantly changed from priors dating back for more than 2 years and therefore benign. Results are discussed with the patient at time of visit. US/US Breast RT Limited Mamm Only IMPRESSION: Benign solid mass versus complicated cyst at 11:00 3 cm from the nipple stable for more than 2 years and therefore benign. ASSESSMENT: BI-RADS 2: Benign RECOMMENDATION: Recommend clinical evaluation and followup This patient's information was entered into a reminder system with a target due date for their next mammogram. Electronically signed by: Meli Pruitt DO 04/03/2025 12:50 PM EDT
--- OUTSIDE RECORDS SUMMARY | 2025-04-03 15:27 | XMS_ITS | Clinical Summary ---
Author Organization 175 [facility] Address [address] [place] [address] Phone Care Team Providers Care Roof Cement And Paint Maker Helper Name Role Phone Shaina Looney MD Primary Care Provider [phone] Encounters Date Type Department Care Team Description 01/29/2025 Telephone Gastroenterology [place] 175 [facility] 175 [facility] [address] [place] [address] Johnnie Dimas MD from Last 3 Months Social History Tobacco Use Types Packs/Day Years Used Date Smoking Tobacco: Never Assessed Comments Unknown Sex and Gender Information Value Date Recorded Sex Assigned at Not on file Legal Sex Female 11:05 AM EDT Gender Identity Not on file Sexual Orientation Not on file Plan of Treatment Upcoming Encounters Date Type Department Care Team (Late st Contact Info) Description 05/15/2025 10:50 AM EST Consult Gastroenterology - 299 [facility] 299 [facility] [address] [place] [phone] Yissel Rod PA 175 [facility] 200 [place] [address] Health Maintenance Due Date Last Done Comments [...] patient's age to complete this topic Insurance [facility] [employer] Care Teams Roof Cement And Paint Maker Helper Relationship Specialty Start Date End Date Shaina Looney MD [address] [place] [phone] PCP - General Internal Medicine 01/29/25
== END 2025-04-03 12:16 | disposition home or self-care (01) ==
LOC: HO.MAMMO 12:15
PROVIDERS: PCP Internal Medicine; Visit Provider Internal Medicine
DX: N63.11 Unspecified lump in the right breast, upper outer quadrant (principal)
CPT/HCPCS: 76642

== ENCOUNTER → 2025-04-03 12:30 | Outpatient (BNV) | payer OTHER, SELFPAY | PROVIDERS: PCP Internal Medicine; Visit Provider Internal Medicine | DX: R92.8 Other abnormal and inconclusive findings on diagnostic imaging of breast (principal) | CPT/HCPCS: 76642 ==